=== PATIENT | female | born 2000 | race Asian ===

== ENCOUNTER 2023-07-24 16:23 | Emergency (ER) | payer MEDICAID ==
[~2023-07-24] VITALS: Ht 167.6 cm; Wt 57.2 kg
[2023-07-24 16:30] VITALS: BP 105/64; PULSE 84; RESP 18; TEMP 97.9; O2SAT 98
[2023-07-24] MEDS: ACETAMINOPHEN EXTRA STRENGTH 500 MG TAB PO ONE (17:15)
[2023-07-24 17:53] LABS: BASOPHILS % (AUTO) 0.2 % (0.0-2.0); EOSINOPHILS # (AUTO) 0.1 K/uL (0-0.4); EOSINOPHILS % (AUTO) 0.6 % (0.0-4.0); HEMATOCRIT 41.9 % (36-48); HEMOGLOBIN 14.1 g/dL (12.0-16.0); LYMPHOCYTES # (AUTO) 2.1 K/uL (2.5-16.5); LYMPHOCYTES % (AUTO) 18.3 % (20.5-51.1); MEAN CORPUSCULAR HEMOGLOBIN 29 pg (27-31); MEAN CORPUSCULAR HGB CONC 34 g/dL (33-37); MEAN CORPUSCULAR VOLUME 87.1 fL (80-94); MONOCYTES # (AUTO) 0.6 K/uL (0.8-1.0); MONOCYTES % (AUTO) 5.2 % (1.7-9.3); NEUTROPHILS # (AUTO) 8.6 K/uL (1.8-7.7); NEUTROPHILS % (AUTO) 75.7 % (42.2-75.2); PLATELET COUNT (AUTO) 269 K/uL (140-450); RED CELL DISTRIBUTION WIDTH 13.4 % (11.6-13.7); WHITE BLOOD COUNT (AUTO) 11.4 K/uL (4.8-10.8)
[2023-07-24 18:08] LABS: ANION GAP 11.3 (8-16); CALCIUM 9.4 mg/dL (8.5-10.1); CARBON DIOXIDE 29.2 mmol/L (21-32); CREATININE 0.8 mg/dL (0.6-1.3); POTASSIUM 3.5 mmol/L (3.5-5.1)
[2023-07-24 18:14] LABS: INR 1.02 (0.8-1.2); PARTIAL THROMBOPLASTIN TIME 27.6 secs (22-35.6); PROTHROMBIN TIME 10.7 secs (10.8-13.4)
[2023-07-24] MEDS ORDERED: ACETAMINOPHEN EXTRA STRENGTH 500 MG TAB ONE (18:40)
[2023-07-24] MEDS: NACL 0.9% 1,000 ML IV ONE (18:44)
[2023-07-24 21:02] VITALS: BP 98/64; PULSE 82; RESP 16; TEMP 97.9; O2SAT 98
== END 2023-07-24 21:02 | disposition home or self-care (01) ==
LOC: MED 16:23
DX: R53.83 Other fatigue (principal); R00.2 Palpitations; Z79.899 Other long term (current) drug therapy
CPT/HCPCS: 36415; 71045; 80048; 81025; 83880; 84443; 84484; 85025; 85379; 85610; 85730; 93005; 96360; 99285; J7030